=== PATIENT | male | born 1945 | race Two or more races ===

== ENCOUNTER 2022-03-21 17:18 | Inpatient (IN) | payer MEDICARE, BC ==
[~2022-03-21] VITALS: Ht 175.3 cm; Wt 70.3 kg
[2022-03-21] MEDS ORDERED: MAG HYDROX/AL HYDROX/SIMETH 30 ML UDC PO PRN (19:30)
[2022-03-21] MEDS ORDERED: MAGNESIUM HYDROXIDE 30 ML UDC PO PRN (19:30)
[2022-03-21] MEDS ORDERED: BLOOD SUGAR DIAGNOSTIC 1 EACH STRIP IN ONE (19:30)
[2022-03-21] MEDS ORDERED: TEMAZEPAM 7.5 MG CAPSULE PO PRN (19:30)
[2022-03-21] MEDS ORDERED: ACETAMINOPHEN 325 MG TABLET PO PRN (19:30)
[2022-03-21] MEDS ORDERED: LISI20TA30 MT (20:02)
[2022-03-21] MEDS ORDERED: RISP0.5T65 MT (20:02)
[2022-03-21] MEDS ORDERED: SIMV80TA90 PO (20:02)
[2022-03-21] MEDS ORDERED: ATEN25TA PO (20:02)
[2022-03-21] MEDS ORDERED: DICY20TA11 PO (20:02)
[2022-03-21] MEDS ORDERED: DUTA0.5C37 PO (20:02)
[2022-03-21] MEDS ORDERED: SERT50TA12 MT (20:02)
[2022-03-21] MEDS ORDERED: LURA40TA PO (20:05)
[2022-03-21] MEDS ORDERED: TERA2CAP4 PO (20:06)
[2022-03-21 20:27] VITALS: BP 134/76
[2022-03-21 20:44] VITALS: BP 134/76
--- NOTE | 2022-03-21 23:37 | NUR ---
RN NOTES : ADMISSION NOTES: ADMITTED THIS 76Y/O MALE PATIENT DIRECT ADMIT FROM [facility] , INITIALLY FROM HOME. ADMITTED TO 5150 HOLD PER HOLD DTS, SI/HI AND WITH PLAN TO OVERDOSE ON ALL HIS PRESCRIPTION MEDICATION. UPON FACE TO FACE ASSESSMENT PATIENT IS A&O 3,DEPRESSED ,EASILY AGITATED, ,DISORGNIZED,RESTLESS,POOR DECISION MAKING,DENIES SI /HI AT THIS TIME, PT. IS POOR HISTORIAN, POOR INSIGHT ,POOR JUDGEMENT , BOTH MD AWARE AND NOTIFIED OF THE ADMISSION, BELONGINGS CONTRABAND WERE DONE , PT. REFUSED SIGNS ADMISSION CONSENT PAPER DUE TO TIRED ,EASILY AGITATED,ENCOURAGED PT. TO TAKE SHOWER, PT. RIGHTS DISCUSS BY POLE FRAMER MACHINE , PROVIDE THE PT. WITH HANDBOOK, AND MEDICATIONS GUIDE, ENVIRONMENTAL SAFETY CHECK DONE, ENCOURAGED PT. VERBALIZED ANY FEELING CONCERN TO STAFF, ORIENT TO UNIT POLICY, NO ACUTE DISTRESS NOTED,VITAL SIGNS WNL ,DENIES ANY PAIN AT THIS TIME,WILL CONTINUE TO MONITOR FOR Q15 SAFETY AND BEHAVIOR.
--- NOTE | 2022-03-22 01:34 | NUR ---
RN NOTES: NOTIFED AIRPLANE CLEANER DANII ZARATE NP, REGARDING ABOUT MED RECON, PER HIS STATES THE DAYS PROVIDER CAN RECON THAT.
--- NOTE | 2022-03-22 06:14 | NUR ---
RN NOTE: CALLED CARLO PEDROZA AT [phone], AND LEFT VOICE MAIL MESSAGES PATIENT'S ADMISSION AT [facility].
[2022-03-22 08:00] VITALS: BP 163/96
[2022-03-22] MEDS ORDERED: TERA5CAP4 PO (08:31)
[2022-03-22] MEDS ORDERED: LORA10TA7 PO (08:32)
[2022-03-22] MEDS ORDERED: CHOL100043 PO (08:32)
[2022-03-22] MEDS: SERTRALINE HCL 50 MG TABLET PO SCH (10:10)
[2022-03-22 10:14] LABS: CHOLESTEROL 129 mg/dL (<200); HDL CHOLESTEROL 55 mg/dL (40-60); LDL 63 mg/dL (0-99); TRIGLYCERIDES 89 mg/dL (30-150)
[2022-03-22] MEDS: clonazePAM 0.5 MG TABLET PO PRN (11:11)
--- NOTE | 2022-03-22 11:18 | NUR ---
pt c/o feeling suicidal and severe anxiety .
--- NOTE | 2022-03-22 11:19 | NUR ---
pt c/o anxiety medicated with clonazepam 0.5mg po x1 will continue to monitor .
--- NOTE | 2022-03-22 11:47 | NUR ---
PARVIZ Clinical Note: Pt placed on a 5150 hold for danger to self. Pt brought to the hospital because he was feeling suicidal. Patient currently resides at home alone located at [address] [place] [address]; ([phone]). Pt would want to return back home upon discharge.
--- NOTE | 2022-03-22 11:47 | NUR ---
PARVIZ Initial Discharge Plan: Patient currently resides at home alone located at [address] [place] [address]; ([phone]). Pt would want to return back home upon discharge. PARVIZ will work with the MD, treatment team, and family to help coordinate appropriate discharge.
--- NOTE | 2022-03-22 12:00 | NUR ---
pt denies suicidal thoughts at this time .will continue to monitor .
[2022-03-22] MEDS: ATENOLOL 25 MG TABLET PO SCH ×2 (12:35→17:16)
[2022-03-22] MEDS: LISINOPRIL (20MG) 20 MG TABLET PO SCH (12:35)
[2022-03-22] MEDS: LORATADINE 10 MG TABLET PO PRN (12:35)
[2022-03-22] MEDS: CHOLECALCIFEROL 1,000 UNIT TABLET (VIT D3) PO SCH (12:35)
[2022-03-22] MEDS ORDERED: DICYCLOMINE HCL 10 MG/5 ML UDC PO SCH (13:00)
[2022-03-22] MEDS: DUTASTERIDE (0.5 MG) 0.5 MG CAPSULE PO SCH ×2 (13:00→14:02)
--- NOTE | 2022-03-22 13:55 | NUR ---
DPOA Document: Pt's Maldonado sent DPOA document and SW placed in pt's chart.
--- NOTE | 2022-03-22 13:55 | NUR ---
PARVIZ Family Contact: PARVIZ contacted pt's Maldonado ([phone]) to discuss treatment and discharge plan. She stated that she is the DPOA and will fax the documents. She reported when pt is stable for discharge she will be picking pt up. Addendum: 03/26/22 at 1408 by PARVIZ MENA Correction- name is Marylin
[2022-03-22 16:00] VITALS: BP 100/68
[2022-03-22] MEDS: DICYCLOMINE HCL 10 MG/5 ML UDC PO SCH ×2 (17:16→21:20)
[2022-03-22] MEDS: TERAZOSIN HCL 5 MG CAPSULE PO SCH (18:05)
[2022-03-22 20:27] VITALS: BP_SYST 78; BP_SYST 96; BP_DIAS 48; BP_DIAS 66
[2022-03-22] MEDS: SIMVASTATIN 20 MG TABLET PO SCH (21:20)
[2022-03-23 08:00] VITALS: BP 106/70
[2022-03-23] MEDS: DUTASTERIDE (0.5 MG) 0.5 MG CAPSULE PO SCH (08:14)
[2022-03-23] MEDS: SERTRALINE HCL 50 MG TABLET PO SCH (08:15)
[2022-03-23] MEDS: CHOLECALCIFEROL 1,000 UNIT TABLET (VIT D3) PO SCH (08:15)
[2022-03-23] MEDS: DICYCLOMINE HCL 10 MG/5 ML UDC PO SCH ×4 (08:16→20:40)
[2022-03-23] MEDS: LISINOPRIL (20MG) 20 MG TABLET PO SCH (08:17)
[2022-03-23] MEDS: ATENOLOL 25 MG TABLET PO SCH ×2 (08:17→17:00)
[2022-03-23 16:00] VITALS: BP 100/65
[2022-03-23] MEDS: TERAZOSIN HCL 5 MG CAPSULE PO SCH (17:20)
--- NOTE | 2022-03-23 18:50 | NUR ---
GPS RN CLOSING NOTE PATIENT IN HIS ROOM RESTING IN BED COMFORTABLY. A/OX2, ABLE TO MAKE NEEDS KNOWN NO S/SX OF ACUTE DISTRESS NOTED. PATIENT APPEARS DEPRESSED, COOPERATIVE TO CARE. PT DENIES SUICIDAL IDEATION. SAFETY PRECAUTIONS MAINTAINED. WILL ENDORSE TO SOFTWARE COMPUTER SPECIALIST NURSE FOR JOSE L, SAFETY, AND BEHAVIOR.
[2022-03-23 20:00] VITALS: BP 120/68
[2022-03-23] MEDS: SIMVASTATIN 20 MG TABLET PO SCH (21:29)
[2022-03-24] MEDS: clonazePAM 0.5 MG TABLET PO PRN (05:48)
--- NOTE | 2022-03-24 05:50 | NUR ---
RN NOTE: 05:40 Patient woke up and verbalizing hearing voices telling him to hurt himself or others.Patient was encouraged to verbalize feelings and he appears to be anxious,fearful but redirectable. Encouraged patient to stay in the quiet room to which he agreed and he requested and given Klonopin 0.5 mg PO as ordered and per clinical assessment.Patientb took the medication and went back to sleep .Patient was placed on line of sight .Will continue to monitor q15 min rounds for safety.
--- NOTE | 2022-03-24 06:44 | NUR ---
Reassessment note: 0642:Patient is awake,resting in bed and stating" I don't want to hurt myself and others,I am calmer now and I am norman for safety". Patient is calm,cooperative,pleasant upon approach.Will continue to monitor q15 min rounds for safety and line of sight.
--- NOTE | 2022-03-24 07:02 | NUR ---
RN note: PORFIRIO Grace was informed of patients' behavior.
[2022-03-24 08:00] VITALS: BP 127/89
[2022-03-24] MEDS: DUTASTERIDE (0.5 MG) 0.5 MG CAPSULE PO SCH (08:26)
[2022-03-24] MEDS: LISINOPRIL (20MG) 20 MG TABLET PO SCH (08:26)
[2022-03-24] MEDS: CHOLECALCIFEROL 1,000 UNIT TABLET (VIT D3) PO SCH (08:26)
[2022-03-24] MEDS: ATENOLOL 25 MG TABLET PO SCH ×2 (08:26→17:00)
[2022-03-24] MEDS: SERTRALINE HCL 50 MG TABLET PO SCH (08:26)
[2022-03-24] MEDS: DIVALPROEX SODIUM 125 MG TABLET.DR PO SCH ×2 (08:46→21:34)
[2022-03-24] MEDS: DICYCLOMINE HCL 10 MG/5 ML UDC PO SCH ×4 (09:58→21:40)
--- NOTE | 2022-03-24 10:30 | NUR ---
PARVIZ Family Contact: PARVIZ contacted pt's Maldonado ([phone]) and discussed pt's treatment/discharge plan. PARVIZ explained the medications pt is on and she stated she would want pt go to a nursing facility and feels it is unsafe for pt to return back home. PARVIZ will find pt placement. Addendum: 03/26/22 at 1407 by PARVIZ MENA velma Rose
--- NOTE | 2022-03-24 14:10 | NUR ---
SNF Referral: SW sent clinicals to [facility] to Juanita ([phone]) for placement. SW sent H & P, progress notes, and medication list.
[2022-03-24 16:00] VITALS: BP 100/68
[2022-03-24] MEDS: TERAZOSIN HCL 5 MG CAPSULE PO SCH (17:25)
--- NOTE | 2022-03-24 19:40 | NUR ---
RN OPENING NOTES; RECEIVED PT IN BED AAOX3,NO SIGN SOB/DISTRESS NOTED,BREATHING EVEN AND UNLABORED,NO UNUSUAL BEHAVIOR AT THIS TIME,SAFETY MEASURE INPLACE,CALL LIGHT WITHIN REACH,WILL CONTINUE TO MONITOR.
[2022-03-24 20:00] VITALS: BP 115/77
[2022-03-24] MEDS: SIMVASTATIN 20 MG TABLET PO SCH (21:34)
[2022-03-24] MEDS: OLANZAPINE 2.5 MG TABLET PO SCH (21:34)
[2022-03-25 08:00] VITALS: BP 119/81
[2022-03-25] MEDS: DIVALPROEX SODIUM 125 MG TABLET.DR PO SCH ×2 (08:38→21:39)
[2022-03-25] MEDS: LISINOPRIL (20MG) 20 MG TABLET PO SCH (08:38)
[2022-03-25] MEDS: CHOLECALCIFEROL 1,000 UNIT TABLET (VIT D3) PO SCH (08:38)
[2022-03-25] MEDS: SERTRALINE HCL 50 MG TABLET PO SCH (08:38)
[2022-03-25] MEDS: DUTASTERIDE (0.5 MG) 0.5 MG CAPSULE PO SCH (08:38)
[2022-03-25] MEDS: ATENOLOL 25 MG TABLET PO SCH ×2 (08:38→17:00)
[2022-03-25] MEDS: DICYCLOMINE HCL 10 MG/5 ML UDC PO SCH ×4 (08:40→21:39)
[2022-03-25 16:00] VITALS: BP 100/67
[2022-03-25] MEDS: TERAZOSIN HCL 5 MG CAPSULE PO SCH (17:05)
--- NOTE | 2022-03-25 17:09 | NUR ---
Probable Cause Hearing done and the pt. after talking with the advocated has decided not to attend the hearing. After considering all the evidence presented, the Hearing Referee upheld for the ground of DTS and GD.
--- NOTE | 2022-03-25 18:08 | NUR ---
RN-NOTES PATIENT IS VISIBLE IN THE UNIT,A/O X3 CALM,COOPERATIVE WITH STAFF AND CARE,NO ACUTE DISTRESS NOTED. COMPLIANT WITH MEDICATIONS. ENCOURAGED PATIENT TO PARTICIPATES IN THE GROUP ACTIVITIES.PATIENT IS AMBULATORY WITH STEADY GAIT. ALL NEEDS ATTENDED AND MET. WILL CONT. MONITORING FOR SAFETY AND BEHAVIOR. WILL ENDORSE TO INCOMING NURSE FOR CONTINUITY OF CARE.
--- NOTE | 2022-03-25 19:30 | NUR ---
[facility]PS RN NOTE, RECEIVED PATIENT AWAKE AND IN BED, NO S/S OR COMPLAINTS OF PAIN AT THIS TIME. PATIENT IS DISPLAYING NO S/S OF APPARENT DISTRESS AT THIS TIME. PATIENT BREATHING IS UNLABORED WITH EQUAL RISE AND FALL OF THE CHEST. PATIENT IS ALERT AND ORIENTED X 3 ON ROOM AIR WITH A SPO2 96%. PATIENT IS COMPLIANT WITH MEDICATIONS, DEPRESSED, FORGETFUL, HARD OF HEARING, DISORGANIZE, AND COOPERATIVE. PATIENT DENIES SUICIDAL AND HOMICIDAL IDEATIONS AT THIS TIME. PATIENT ASSISTED WITH TURNING AND REPOSITIONING Q2HR AND PRN FOR COMFORT AND CIRCULATION. PATIENT HAS NO NEEDS AT THIS TIME. PATIENT EDUCATED ON THE USE OF THE CALL CHRISTIANSEN. PATIENT BED SIDE RAILS UP X 2 FOR SAFETY. PATIENT BED IS LOCKED, LOW, WITH BED ALARM ON. WILL CONTINUE TO MONITOR THIS PATIENT Q15 MINUTES WITH THE HELP OF STAFF TO MAINTAIN SAFETY.
[2022-03-25 20:00] VITALS: BP 101/83
[2022-03-25] MEDS: OLANZAPINE 2.5 MG TABLET PO SCH (21:38)
[2022-03-25] MEDS: SIMVASTATIN 20 MG TABLET PO SCH (21:39)
[2022-03-25 22:00] VITALS: BP 101/83
[2022-03-26 08:00] VITALS: BP 121/80
[2022-03-26] MEDS: CHOLECALCIFEROL 1,000 UNIT TABLET (VIT D3) PO SCH (08:51)
[2022-03-26] MEDS: DUTASTERIDE (0.5 MG) 0.5 MG CAPSULE PO SCH (08:51)
[2022-03-26] MEDS: DIVALPROEX SODIUM 125 MG TABLET.DR PO SCH ×2 (08:51→21:57)
[2022-03-26] MEDS: SERTRALINE HCL 50 MG TABLET PO SCH (08:51)
[2022-03-26] MEDS: DICYCLOMINE HCL 10 MG/5 ML UDC PO SCH ×4 (08:53→21:58)
[2022-03-26] MEDS: LISINOPRIL (20MG) 20 MG TABLET PO SCH (08:55)
[2022-03-26] MEDS: ATENOLOL 25 MG TABLET PO SCH ×2 (08:56→17:00)
--- NOTE | 2022-03-26 13:39 | NUR ---
SNF Contact: SW spoke with [facility] Messi ([phone]) who stated pt is accepted.
--- NOTE | 2022-03-26 14:07 | NUR ---
PARVIZ Note: SW discussed discharge plan with pt. Pt understands that he is unable to take care of himself at home and wants to continue his care at a nursing facility. He is agreeable of going to [facility].
--- NOTE | 2022-03-26 14:08 | NUR ---
PARVIZ Family Contact: PARVIZ contacted pt's WOOD Coulter ([phone]) to discuss discharge planning. He did stated that it is not safe for pt to go back home because he becomes impulsive and depressed. PARVIZ mentioned pt is accepted at a nursing facility [facility] and she was agreeable of this.
[2022-03-26 16:00] VITALS: BP 96/61
[2022-03-26] MEDS: TERAZOSIN HCL 5 MG CAPSULE PO SCH (17:06)
--- NOTE | 2022-03-26 19:10 | NUR ---
RN-NOTES PATIENT ISOLATIVE IN THE ROOM A/O X3 CALM,COOPERATIVE WITH STAFF AND CARE,NO ACUTE DISTRESS NOTED. COMPLIANT WITH MEDICATIONS. ENCOURAGED PATIENT TO PARTICIPATES IN THE GROUP ACTIVITIES.PATIENT IS AMBULATORY WITH STEADY GAIT. ALL NEEDS ATTENDED AND MET. PATIENT HAD HIS LEFT HEARING AID WITH HIM.WILL CONT. MONITORING FOR SAFETY AND BEHAVIOR. WILL ENDORSE TO INCOMING NURSE FOR CONTINUITY OF CARE.
[2022-03-26 20:49] VITALS: BP 110/69
[2022-03-26] MEDS: OLANZAPINE 2.5 MG TABLET PO SCH (21:57)
[2022-03-26] MEDS: SIMVASTATIN 20 MG TABLET PO SCH (21:57)
[2022-03-27 07:16] LABS: BASOPHILS % (AUTO) 0.4 % (0.0-2.0); EOSINOPHILS % (AUTO) 1.6 % (0.0-6.0); HEMATOCRIT 39 % (39-51); HEMOGLOBIN 13.3 g/dL (13.5-17.5); LYMPHOCYTES % (AUTO) 30.4 % (20.0-44.0); MEAN CORPUSCULAR HGB CONC 34 g/dl (31.0-36.0); MEAN CORPUSCULAR VOLUME 95 fL (80-96); MONOCYTES # (AUTO) 0.5 K/uL (0.1-1.30); MONOCYTES % (AUTO) 7.8 % (2.0-12.0); NEUTROPHILS # (AUTO) 3.9 K/uL (1.8-8.9); NEUTROPHILS % (AUTO) 59.8 % (43.0-81.0); PLATELET COUNT (AUTO) 167 K/uL (150-450); RED BLOOD CELL COUNT(AUTO) 4.14 MIL/uL (4.5-6.0); WHITE BLOOD COUNT (AUTO) 6.6 K/uL (4.3-11.0)
[2022-03-27 07:32] LABS: CALCIUM, SERUM 8.8 mg/dL (8.5-10.1); CREATININE 0.9 mg/dL (0.6-1.3); MAGNESIUM 2.1 mg/dL (1.8-2.4); POTASSIUM 3.8 mmol/L (3.5-5.1)
[2022-03-27 08:00] VITALS: BP 107/76
[2022-03-27] MEDS: ATENOLOL 25 MG TABLET PO SCH ×2 (08:58→16:33)
[2022-03-27] MEDS: LISINOPRIL (20MG) 20 MG TABLET PO SCH (08:58)
[2022-03-27] MEDS: DIVALPROEX SODIUM 125 MG TABLET.DR PO SCH ×2 (08:59→21:24)
[2022-03-27] MEDS: DUTASTERIDE (0.5 MG) 0.5 MG CAPSULE PO SCH (08:59)
[2022-03-27] MEDS: CHOLECALCIFEROL 1,000 UNIT TABLET (VIT D3) PO SCH (08:59)
[2022-03-27] MEDS: SERTRALINE HCL 50 MG TABLET PO SCH (09:02)
[2022-03-27] MEDS: DICYCLOMINE HCL 10 MG/5 ML UDC PO SCH ×4 (09:03→21:28)
--- NOTE | 2022-03-27 10:10 | NUR ---
RN Notes: Received pt. awake in bed, responsive to staffs to staff and pleasant upon approached. Ate 40% for breakfast, BP meds not given for a low BP and compliant on the rest of his meds. Pt. is quiet, isolates in room and no distress and no agitation noted. Encouraged to verbalize feelings and motivated to attend group activity. Needs attended and will continue to monitor for safety.
[2022-03-27 16:00] VITALS: BP 108/66
[2022-03-27] MEDS: TERAZOSIN HCL 5 MG CAPSULE PO SCH (17:28)
[2022-03-27 20:19] VITALS: BP 124/71
--- NOTE | 2022-03-27 20:48 | NUR ---
RN NOTES: PATIENT RESTING IN ROOM, NO S/SX OF ACUTE DISTRESS NOTED. PATIENT REMAINS DEPRESSED,ISOLATIVE , MED COMPLIANT,COOPERTIVE. DENIES SI/HI AT THIS TIME.ENCOURAGE TO VERBALIZED ANY FEELING OR CONCERN, SAFETY MEASURES IN PLACE. WILL CONTINUE TO MONITOR Q15MIN ROUNDS FOR SAFETY AND BEHAVIOR.
[2022-03-27] MEDS: SIMVASTATIN 20 MG TABLET PO SCH (21:24)
[2022-03-27] MEDS: OLANZAPINE 2.5 MG TABLET PO SCH (21:28)
[2022-03-28 08:00] VITALS: BP 142/97
[2022-03-28] MEDS: DIVALPROEX SODIUM 125 MG TABLET.DR PO SCH ×2 (08:22→21:36)
[2022-03-28] MEDS: LORATADINE 10 MG TABLET PO PRN (08:22)
[2022-03-28] MEDS: ATENOLOL 25 MG TABLET PO SCH ×2 (08:22→17:03)
[2022-03-28] MEDS: DUTASTERIDE (0.5 MG) 0.5 MG CAPSULE PO SCH (08:22)
[2022-03-28] MEDS: CHOLECALCIFEROL 1,000 UNIT TABLET (VIT D3) PO SCH (08:23)
[2022-03-28] MEDS: LISINOPRIL (20MG) 20 MG TABLET PO SCH (08:23)
[2022-03-28] MEDS: SERTRALINE HCL 50 MG TABLET PO SCH (08:23)
[2022-03-28] MEDS: DICYCLOMINE HCL 10 MG/5 ML UDC PO SCH ×4 (08:27→21:36)
--- NOTE | 2022-03-28 09:21 | NUR ---
RN-CO; PATIENT IS AWAKE, DENIED PAIN AND DISCOMFORTS. VERY DEPRESSED AND BELIEVES THAT ANTI DEPRESSANT IS NOT WORKING. HE FEELS HOPELESS AND HELPLESS, DR CAMARENA IS AWARE. HE DENIED SUICIDAL PLAN. I WILL CONTINUE TO MONITOR Q 1 HR AND PRN. ENCOURAGED TO VENTILATE FEELINGS.
[2022-03-28 16:00] VITALS: BP 122/78
[2022-03-28] MEDS: TERAZOSIN HCL 5 MG CAPSULE PO SCH (17:04)
[2022-03-28 21:03] VITALS: BP 120/55
[2022-03-28] MEDS: OLANZAPINE 2.5 MG TABLET PO SCH (21:36)
[2022-03-28] MEDS: SIMVASTATIN 20 MG TABLET PO SCH (21:36)
[2022-03-29 08:00] VITALS: BP 124/81
[2022-03-29] MEDS: SERTRALINE HCL 50 MG TABLET PO SCH (09:57)
[2022-03-29] MEDS: DICYCLOMINE HCL 10 MG/5 ML UDC PO SCH ×4 (09:58→21:20)
[2022-03-29] MEDS: CHOLECALCIFEROL 1,000 UNIT TABLET (VIT D3) PO SCH (09:58)
[2022-03-29] MEDS: DIVALPROEX SODIUM 125 MG TABLET.DR PO SCH ×2 (09:58→21:21)
[2022-03-29] MEDS: ATENOLOL 25 MG TABLET PO SCH ×2 (09:58→16:48)
[2022-03-29] MEDS: DUTASTERIDE (0.5 MG) 0.5 MG CAPSULE PO SCH (09:59)
[2022-03-29] MEDS: LISINOPRIL (20MG) 20 MG TABLET PO SCH (09:59)
[2022-03-29 16:00] VITALS: BP 117/81
[2022-03-29] MEDS: TERAZOSIN HCL 5 MG CAPSULE PO SCH (16:48)
[2022-03-29 19:42] VITALS: BP 111/68
[2022-03-29 19:43] VITALS: BP 111/68
[2022-03-29] MEDS: SIMVASTATIN 20 MG TABLET PO SCH (21:21)
[2022-03-29] MEDS: OLANZAPINE 2.5 MG TABLET PO SCH (22:14)
[2022-03-30 08:00] VITALS: BP 131/84
[2022-03-30] MEDS: LISINOPRIL (20MG) 20 MG TABLET PO SCH (09:27)
[2022-03-30] MEDS: DICYCLOMINE HCL 10 MG/5 ML UDC PO SCH ×4 (09:27→21:13)
[2022-03-30] MEDS: SERTRALINE HCL 50 MG TABLET PO SCH (09:27)
[2022-03-30] MEDS: DUTASTERIDE (0.5 MG) 0.5 MG CAPSULE PO SCH (09:28)
[2022-03-30] MEDS: ATENOLOL 25 MG TABLET PO SCH ×2 (09:28→16:35)
[2022-03-30] MEDS: DIVALPROEX SODIUM 125 MG TABLET.DR PO SCH ×2 (09:28→21:13)
[2022-03-30] MEDS: CHOLECALCIFEROL 1,000 UNIT TABLET (VIT D3) PO SCH (09:28)
[2022-03-30 16:00] VITALS: BP 100/64
[2022-03-30] MEDS: TERAZOSIN HCL 5 MG CAPSULE PO SCH (17:04)
[2022-03-30 20:05] VITALS: BP 112/76
[2022-03-30 20:58] VITALS: BP 112/76
[2022-03-30] MEDS: SIMVASTATIN 20 MG TABLET PO SCH (21:43)
[2022-03-30] MEDS: OLANZAPINE 2.5 MG TABLET PO SCH (21:46)
[2022-03-31 08:00] VITALS: BP 120/75
[2022-03-31] MEDS: SERTRALINE HCL 50 MG TABLET PO SCH (08:52)
[2022-03-31] MEDS: LISINOPRIL (20MG) 20 MG TABLET PO SCH (08:53)
[2022-03-31] MEDS: CHOLECALCIFEROL 1,000 UNIT TABLET (VIT D3) PO SCH (08:53)
[2022-03-31] MEDS: DUTASTERIDE (0.5 MG) 0.5 MG CAPSULE PO SCH (08:53)
[2022-03-31] MEDS: DIVALPROEX SODIUM 125 MG TABLET.DR PO SCH ×2 (08:53→21:48)
[2022-03-31] MEDS: DICYCLOMINE HCL 10 MG/5 ML UDC PO SCH ×4 (08:54→21:31)
[2022-03-31] MEDS: ATENOLOL 25 MG TABLET PO SCH ×2 (08:54→16:22)
[2022-03-31 16:00] VITALS: BP 119/83
[2022-03-31] MEDS: TERAZOSIN HCL 5 MG CAPSULE PO SCH (17:09)
[2022-03-31] MEDS ORDERED: LACTULOSE 20 G/30 ML UDC PO PRN (18:00)
[2022-03-31 19:54] VITALS: BP 96/63
[2022-03-31] MEDS: SIMVASTATIN 20 MG TABLET PO SCH (21:43)
[2022-03-31 21:45] VITALS: BP 110/67
[2022-03-31] MEDS ORDERED: LACTULOSE 10 G/15 ML UDC (PYXIS) PO PRN (22:00)
[2022-03-31] MEDS: OLANZAPINE 2.5 MG TABLET PO SCH (22:05)
[2022-04-01] MEDS ORDERED: NA PHOS,M-B/NA PHOS,DI-BA 1 EA ENEMA RC ONE (03:24)
--- NOTE | 2022-04-01 03:36 | NUR ---
RN NOTE: C/O CONSTIPATION PATIENT C/O OF NOT HAVING BOWEL MOVEMENT. LACTULOSE GIVEN INEFFECTIVE. ADMINISTERED FLEET ENEMA ORDERED. WILL CONTINUE TO MONITOR.
--- NOTE | 2022-04-01 04:15 | NUR ---
RN NOTE PATIENT HAD LARGE BOWEL MOVEMENT.
[2022-04-01 08:00] VITALS: BP 113/73
[2022-04-01] MEDS: SERTRALINE HCL 50 MG TABLET PO SCH (08:29)
[2022-04-01] MEDS: DUTASTERIDE (0.5 MG) 0.5 MG CAPSULE PO SCH (08:29)
[2022-04-01] MEDS: LISINOPRIL (20MG) 20 MG TABLET PO SCH (08:30)
[2022-04-01] MEDS: ATENOLOL 25 MG TABLET PO SCH ×2 (08:30→17:00)
[2022-04-01] MEDS: CHOLECALCIFEROL 1,000 UNIT TABLET (VIT D3) PO SCH (08:30)
[2022-04-01] MEDS: DIVALPROEX SODIUM 125 MG TABLET.DR PO SCH ×2 (08:30→21:06)
[2022-04-01] MEDS: DICYCLOMINE HCL 10 MG/5 ML UDC PO SCH ×4 (08:32→21:06)
[2022-04-01] MEDS ORDERED: NA PHOS,M-B/NA PHOS,DI-BA 1 EA ENEMA RC PRN (09:00)
[2022-04-01 16:00] VITALS: BP_SYST 100; BP_SYST 90; BP_DIAS 54
[2022-04-01] MEDS: TERAZOSIN HCL 5 MG CAPSULE PO SCH (17:13)
--- NOTE | 2022-04-01 18:30 | NUR ---
RN-NOTES PATIENT IS VISIBLE IN THE UNIT A/O X2,QUIET,COOPERATIVE WITH THE STAFF AND CARE. COMPLIANT WITH MEDICATIONS. NEEDS MINIMAL ASSIST WITH ADL'S. AMBULATORY STEADY GAIT. ABLE TO MAKE NEEDS KNOWN TO THE STAFF.ALL NEEDS ATTENDED AND ANTICIPATED. WILL CONT. MONITORING FOR SAFETY FOR BEHAVIOR. WILL ENDORSE TO INCOMING NURSE FOR CONTINUITY OF CARE.
[2022-04-01 20:00] VITALS: BP 106/59
[2022-04-01] MEDS: SIMVASTATIN 20 MG TABLET PO SCH (21:07)
[2022-04-01] MEDS: OLANZAPINE 2.5 MG TABLET PO SCH (21:07)
[2022-04-02 08:00] VITALS: BP 120/86
--- NOTE | 2022-04-02 08:04 | NUR ---
SW Discharge Note: Patient will be discharged to [facility] [address], [place] [address]; ). Please arrange ambulance at 1PM. Senior Online Marketing Manager spoke with Messi Fitness Teacher at [facility]; ([phone]), who stated patient will be accepted today. Patient's Marylin ([phone]) is aware and agreeable. Patient is alert and oriented x2 and is unable to plan for self-care. Patient denies any suicidal or homicidal ideations. Patient is aware and agreeable with discharge plans. Patient will continue to follow-up with (Psychiatrist) Dr. Munoz [address], [place] [address]; ([phone]) and (Herbicide Service Sales Representative) Dr. Earl [address], [place] [address]; ([phone]). Patient presents with euthymic mood and congruent affect.
--- NOTE | 2022-04-02 08:21 | NUR ---
Sanjay Aguayo NP gave order to D/C hold and D/C to [facility] and to follow up with psych and medical doctors. SHON Aguayo reconciled meds to continue in the facility
[2022-04-02 08:30] VITALS: BP 120/86
[2022-04-02] MEDS: ATENOLOL 25 MG TABLET PO SCH (08:30)
[2022-04-02] MEDS: DICYCLOMINE HCL 10 MG/5 ML UDC PO SCH ×2 (08:30→13:07)
[2022-04-02] MEDS: LISINOPRIL (20MG) 20 MG TABLET PO SCH (08:30)
[2022-04-02] MEDS: DIVALPROEX SODIUM 125 MG TABLET.DR PO SCH (08:30)
[2022-04-02] MEDS: SERTRALINE HCL 50 MG TABLET PO SCH (08:30)
[2022-04-02] MEDS: CHOLECALCIFEROL 1,000 UNIT TABLET (VIT D3) PO SCH (08:30)
[2022-04-02] MEDS: DUTASTERIDE (0.5 MG) 0.5 MG CAPSULE PO SCH (08:30)
--- NOTE | 2022-04-02 13:37 | NUR ---
RN-DISCHARGE NOTES PATIENT HAD A DISCHARGE ORDER FROM PORFIRIO ROSA( PSYCHIATRIST),DR. RODRIGUEZ ( DRIER OPERATOR HEAD ) MEDICALLY CLEARED PATIENT FOR DISCHARGE. PATIENT WAS DISCHARGED TO [facility]. REPORT WAS GIVEN TO MAURICE ( PROJECT MANAGEMENT ENGINEER) FACILITY STAFF. PATIENT LEFT THE UNIT A/O X3,AMBULATORY STEADY GAIT. NO ACUTE DISTRESS NOTED. PATIENT DID NOT VERBALIZE SI/HI,DENIES VISUAL/AUDITORY HALLUCINATIONS AT THE TIME OF DISCHARGE. PATIENT WAS NURSE EMERGENCY ROOM BY AMBULANCE VIA GURNEY, ALL BELONGINGS WAS GIVEN BACK TO THE PATIENT INCLUDING OWN MEDICATIONS AND BILATERAL HEARING AID AND ALL OTHER BELONGINGS.
== END 2022-04-02 13:25 | DRG 881 ==
LOC: GPS 18:41
PROVIDERS: ADMIT Nurse Practitioner Psychiatric/Mental Health; ATTEND Internal Medicine
DX: F32.9 Major depressive disorder, single episode, unspecified (principal); K57.92 Diverticulitis of intestine, part unspecified, without perforation or abscess without bleeding; R45.851 Suicidal ideations; F29 Unspecified psychosis not due to a substance or known physiological condition; F41.9 Anxiety disorder, unspecified; I10 Essential (primary) hypertension; E78.5 Hyperlipidemia, unspecified; I34.1 Nonrheumatic mitral (valve) prolapse; M19.90 Unspecified osteoarthritis, unspecified site; N40.0 Benign prostatic hyperplasia without lower urinary tract symptoms; H91.90 Unspecified hearing loss, unspecified ear; R45.850 Homicidal ideations; Z79.899 Other long term (current) drug therapy; Z87.891 Personal history of nicotine dependence; Z96.642 Presence of left artificial hip joint
CPT/HCPCS: 36415; 80048-TC; 80061-TC; 80164-TC; 82565-TC; 82962-TC; 83735-TC; 84075-TC; 85025-TC; 87081-TC